=== PATIENT | female | born 2000 | race Caucasian/White ===

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

== ENCOUNTER 2019-02-06 00:32 | Emergency (ER) | payer SELFPAY ==
[2019-02-06] MEDS ORDERED: FLUORESCEIN 1 MG STRIP OP ONE (01:30)
[2019-02-06] MEDS ORDERED: TETRACAINE 0.5% OPHTH SOLN 4ML OU ONE (01:30)
--- NOTE | 2019-02-06 02:20 | Emergency Department Report ---
ED General Adult HPI - General Chief complaint: Eye Problems Stated complaint: UNABLE TO REMOVE CONTACT LENS Time Seen by Provider: 02/06/19 01:29 Source: patient Mode of arrival: Ambulatory Limitations: No Limitations - History of Present Illness Initial comments: 18-year-old female patient presents with complaints of Hospital contact stuck in her right eye. She states that she cannot remember taking out the contact. She admits to irritation and mild pain in her right eye. She denies photophobia, vision changes, discharge from eyes, or headache. -: Sudden Location: eyes Severity scale (0 -10): 3 Quality: sharp Consistency: intermittent Associated Symptoms: denies other symptoms Treatments Prior to Arrival: none - Related Data Previous Rx's Medication Instructions Recorded Last Taken Type EPINEPHrine [Epipen 2-Galindo] 0.3 mg IM ONCE PRN #2 pen 08/14/18 Unknown Rx Famotidine [Pepcid] 20 mg PO BID #10 tablet 08/14/18 Unknown Rx diphenhydrAMINE [Benadryl CAP] 25 mg PO Q6HR PRN #20 capsule 08/14/18 Unknown Rx predniSONE [Deltasone] 20 mg PO QDAY 4 Days #4 tab 08/14/18 Unknown Rx Ofloxacin 0.3% [Ocuflox 0.3% opth] 2 drops OP Q4H 7 Days #1 bottle 02/06/19 Unknown Rx Allergies Allergy/AdvReac Type Severity Reaction Status Date / Time No Known Allergies Allergy Unverified 08/13/18 23:38 ED Review of Systems ROS: Stated complaint: UNABLE TO REMOVE CONTACT LENS Other details as noted in HPI Comment: All other systems reviewed and negative Eyes: as per HPI ED Past Medical Hx - Past Medical History Previous Medical History?: No - Surgical History Past Surgical History?: No - Social History Smoking Status: Never Smoker Substance Use Type: None - Medications Home Medications: Home Medications Medication Instructions Recorded Confirmed Last Taken Type EPINEPHrine [Epipen 2-Galindo] 0.3 mg IM ONCE PRN #2 pen 08/14/18 Unknown Rx Famotidine [Pepcid] 20 mg PO BID #10 tablet 08/14/18 Unknown Rx diphenhydrAMINE [Benadryl CAP] 25 mg PO Q6HR PRN #20 capsule 08/14/18 Unknown Rx predniSONE [Deltasone] 20 mg PO QDAY 4 Days #4 tab 08/14/18 Unknown Rx Ofloxacin 0.3% [Ocuflox 0.3% opth] 2 drops OP Q4H 7 Days #1 bottle 02/06/19 Unknown Rx ED Physical Exam - General Limitations: No Limitations General appearance: alert, in no apparent distress - Head Head exam: Present: atraumatic, normocephalic - Eye Eye exam: Present: PERRL, EOMI, conjunctival injection (right). Absent: scleral icterus Pupils: Present: other (right eyelid everted, no contact lens noted on exam. Small corneal abrasion noted at about 6:00 on fluorescein stain) - Expanded Eye Exam Expanded Eyelids: Normal Inspection: Right Sclera/Conjunctival: Normal Inspection: Left, Injection: Right ED Course Vital Signs 02/06/19 02/06/19 00:35 02:58 Temperature 98.2 F 98.2 F Pulse Rate 71 72 Respiratory 18 18 Rate Blood Pressure 116/75 Blood Pressure 107/54 [Right] O2 Sat by Pulse 100 98 Oximetry ED Medical Decision Making - Medical Decision Making Patient here for possible contact stuck in right eye. No foreign body noted on exam. Small corneal abrasion noted with fluorescein stain. Patient to DC home with ophthalmology follow-up and ofloxacin prescription given that she is a contact lens wearer. Discussed strict return precautions in detail with patient who states understanding. Critical care attestation.: If time is entered above; I have spent that time in minutes in the direct care of this critically ill patient, excluding procedure time. ED Disposition Clinical Impression: Corneal abrasion, right Qualifiers: Encounter type: initial encounter Qualified Code(s): S05.01XA - Injury of conjunctiva and corneal abrasion without foreign body, right eye, initial encounter Disposition: DC-01 TO HOME OR SELFCARE Is pt being admited?: No Condition: Stable Instructions: Corneal Abrasion (ED) Additional Instructions: Please follow-up with your eye doctor within 5 days. Also recommend over the counter Artificial tears as needed for dry eyes. If you develop any new or worsening symptoms return to the emergency immediately Prescriptions: Ofloxacin 0.3% [Ocuflox 0.3% opth] 2 drops OP Q4H 7 Days #1 bottle Referrals: PRIMARY CARE, [Primary Care Provider] - 3-5 Days
[2019-02-06 03:00] VITALS: BP 107/54
== END 2019-02-06 02:59 | disposition home or self-care (01) ==
LOC: ED 00:32
DX: S05.01XA Injury of conjunctiva and corneal abrasion without foreign body, right eye, initial encounter (principal); Z79.899 Other long term (current) drug therapy; X58.XXXA Exposure to other specified factors, initial encounter; Y93.89 Activity, other specified; Y92.89 Other specified places as the place of occurrence of the external cause; Y99.8 Other external cause status